=== PATIENT | male | born 1950 | race Caucasian/White ===

== ENCOUNTER 2023-01-24 10:57 | Inpatient (IN) | payer MEDICARE, OTHER ==
[~2023-01-24] VITALS: Ht 185.4 cm; Wt 68.0 kg
[2023-01-24] MEDS ORDERED: PIPERACILLIN/TAZOBACTAM 4.5 GM in SODIUM CHLORIDE 0.9% 100 ML IV STA (11:19)
[2023-01-24 11:28] LABS: BASOPHILS # (AUTO) 0.1 (0.0-0.1); BASOPHILS % 0.6 % (0.0-1.0); EOSINOPHILS # (AUTO) 0.1 (0.0-0.4); EOSINOPHILS % 0.8 % (0.0-6.0); HEMATOCRIT 45.2 % (38.2-49.6); LYMPHOCYTES # (AUTO) 1.6 (1.0-3.2); LYMPHOCYTES % 13.8 % (18.0-39.1); MEAN CORPUSCULAR HEMOGLOBIN 32.9 pg (28-32); MEAN CORPUSCULAR HGB CONC 33.2 g/dL (31-35); MEAN CORPUSCULAR VOLUME 99.1 fL (81-99); MONOCYTES # (AUTO) 1.2 (0.2-0.8); MONOCYTES % 10.9 % (4.4-11.3); NEUTROPHILS # (AUTO) 8.3 (2.1-6.9); NEUTROPHILS % 73.5 % (38.7-80.0); PLATELET COUNT 404 x10e3/uL (140-360); RED BLOOD COUNT 4.56 x10e6/uL (4.3-5.7)
[2023-01-24] MEDS ORDERED: ONDANSETRON HCL INJ 2MG/ML 2ML 2 MG/ML VIAL IV PRN (11:30)
[2023-01-24 11:46] LABS: INR 0.95; PROTHROMBIN TIME 12.9 seconds (11.9-14.5)
[2023-01-24] MEDS: SODIUM CHLORIDE 0.9% 1000ML 1,000 ML IV SCH ×2 (11:54→22:19)
[2023-01-24 11:55] LABS: ALANINE AMINOTRANSFERASE 14 IU/L (0-55); ALBUMIN 3.8 g/dL (3.5-5.0); ALBUMIN/GLOBULIN RATIO 0.9 (0.8-2.0); ALKALINE PHOSPHATASE 101 IU/L (40-150); ANION GAP 14.3 mmol/L (8-16); BLOOD UREA NITROGEN 11 mg/dL (7-26); BUN/CREATININE RATIO 14 (6-25); CALCIUM 9.6 mg/dL (8.4-10.2); CARBON DIOXIDE 24 mmol/L (22-29); CHLORIDE 101 mmol/L (98-107); CREATINE KINASE 178 IU/L (30-200); CREATININE, SERUM 0.78 mg/dL (0.72-1.25); GLUCOSE 118 mg/dL (74-118); POTASSIUM 4.3 mmol/L (3.5-5.1); SODIUM 135 mmol/L (136-145)
[2023-01-24] MEDS ORDERED: Vancomycin IV 1 GM in SODIUM CHLORIDE 0.9% 250ML 250 ML IV ONE (12:00)
[2023-01-24] MEDS ORDERED: SODIUM CHLORIDE 0.9% 100 ML ONE (12:10)
[2023-01-24 15:51] VITALS: BP 91/69
[2023-01-24 15:52] VITALS: BP 91/69
[2023-01-24 15:58] VITALS: BP 91/69
[2023-01-24 20:00] VITALS: BP 110/56
[2023-01-25] VITALS (9 sets, daily range): BP systolic 90–119; BP diastolic 42–65
[2023-01-25] MEDS: SODIUM CHLORIDE 0.9% 1000ML 1,000 ML IV SCH (05:29)
[2023-01-25 05:43] LABS: BASOPHILS # (AUTO) 0.1 (0.0-0.1); BASOPHILS % 0.9 % (0.0-1.0); EOSINOPHILS # (AUTO) 0.3 (0.0-0.4); EOSINOPHILS % 3.8 % (0.0-6.0); HEMATOCRIT 40.9 % (38.2-49.6); HEMOGLOBIN 13.1 g/dL (14.0-18.0); LYMPHOCYTES # (AUTO) 1.8 (1.0-3.2); LYMPHOCYTES % 20.3 % (18.0-39.1); MEAN CORPUSCULAR HEMOGLOBIN 32.6 pg (28-32); MEAN CORPUSCULAR VOLUME 101.7 fL (81-99); MONOCYTES # (AUTO) 1.1 (0.2-0.8); MONOCYTES % 12.9 % (4.4-11.3); NEUTROPHILS # (AUTO) 5.5 (2.1-6.9); NEUTROPHILS % 61.6 % (38.7-80.0); PLATELET COUNT 337 x10e3/uL (140-360); RED BLOOD COUNT 4.02 x10e6/uL (4.3-5.7)
[2023-01-25 06:09] LABS: ANION GAP 10.9 mmol/L (8-16); CALCIUM 8.4 mg/dL (8.4-10.2); CREATININE, SERUM 0.68 mg/dL (0.72-1.25); POTASSIUM 3.9 mmol/L (3.5-5.1)
[2023-01-25] MEDS ORDERED: ACETAMINOPHEN 325 MG TAB PO PRN (10:00)
[2023-01-25] MEDS ORDERED: ONDANSETRON HCL INJ 2MG/ML 2ML 2 MG/ML VIAL IV PRN (10:00)
[2023-01-25] MEDS ORDERED: NICOTINE 21 MG/EA PATCH TOP PRN (10:15)
[2023-01-25] MEDS: HYDROCODONE/APAP 5MG-325MG TAB PO PRN (20:20)
[2023-01-25] MEDS ORDERED: SODIUM CHLORIDE 0.9% 100 ML ONE (20:21)
[2023-01-25] MEDS ORDERED: IOPAMIDOL 370 MG/ML 100 ML INFUS..BTL INJ ONE (20:21)
[2023-01-26] VITALS (8 sets, daily range): BP systolic 94–124; BP diastolic 55–63
[2023-01-26] MEDS: ASPIRIN 81 MG ENTERIC COATED PO SCH (09:19)
[2023-01-26 11:12] LABS: CHOL/HDL RATIO 4.5 (3.9-4.7)
[2023-01-26] MEDS: HYDROCODONE/APAP 5MG-325MG TAB PO PRN (11:32)
[2023-01-26] MEDS: ATORVASTATIN 40 MG TAB PO SCH (20:04)
[2023-01-27] VITALS (21 sets, daily range): BP systolic 103–145; BP diastolic 57–80
[2023-01-27] MEDS ORDERED: SODIUM CHLORIDE 0.9% 1000ML 1,000 ML IV SCH ×3 (05:00→16:45)
[2023-01-27 05:10] LABS: BASOPHILS # (AUTO) 0.1 (0.0-0.1); BASOPHILS % 0.8 % (0.0-1.0); EOSINOPHILS # (AUTO) 0.3 (0.0-0.4); EOSINOPHILS % 2.5 % (0.0-6.0); HEMATOCRIT 41.4 % (38.2-49.6); HEMOGLOBIN 13.4 g/dL (14.0-18.0); LYMPHOCYTES % 19.3 % (18.0-39.1); MEAN CORPUSCULAR HEMOGLOBIN 32.8 pg (28-32); MEAN CORPUSCULAR HGB CONC 32.4 g/dL (31-35); MEAN CORPUSCULAR VOLUME 101.2 fL (81-99); MONOCYTES # (AUTO) 1.3 (0.2-0.8); MONOCYTES % 12.4 % (4.4-11.3); NEUTROPHILS # (AUTO) 6.7 (2.1-6.9); NEUTROPHILS % 64.8 % (38.7-80.0); PLATELET COUNT 343 x10e3/uL (140-360); RED BLOOD COUNT 4.09 x10e6/uL (4.3-5.7); RED CELL DISTRIBUTION WIDTH 12.8 % (11.7-14.4)
[2023-01-27 05:34] LABS: ALBUMIN/GLOBULIN RATIO 0.8 (0.8-2.0); CREATININE, SERUM 0.86 mg/dL (0.72-1.25)
[2023-01-27] MEDS: ASPIRIN 81 MG ENTERIC COATED PO SCH (09:00)
[2023-01-27] MEDS: COLLAGENASE 5 GM TUBE TOP SCH (10:58)
[2023-01-27] MEDS ORDERED: CLOPIDOGREL BISULFATE 75 MG TAB PO ONE (11:30)
[2023-01-27] MEDS ORDERED: HEPARIN SOD (PORCINE) 1000 UNIT/ML 30ML ONE (14:44)
[2023-01-27] MEDS ORDERED: NITROGLYCERIN/D5W 200 MCG/ML 250 ML ONE (14:45)
[2023-01-27] MEDS ORDERED: SODIUM CHLORIDE 0.9% 1000ML 1,000 ML ONE (14:45)
[2023-01-27] MEDS ORDERED: LIDOCAINE HCL 2% LOCAL 20 ML VIAL ONE (14:45)
[2023-01-27] MEDS ORDERED: IOPAMIDOL 370 MG/ML 100 ML INFUS..BTL INJ ONE (14:45)
[2023-01-27] MEDS ORDERED: HEPARIN SOD/SOD CHLORIDE 2,000 ML ONE (14:45)
[2023-01-27] MEDS ORDERED: FENTANYL CITRATE/PF 100MCG/2 ML INJ ONE (14:46)
[2023-01-27] MEDS ORDERED: MIDAZOLAM HCL 2 MG/2 ML VIAL ONE (14:46)
[2023-01-27] MEDS: ATORVASTATIN 40 MG TAB PO SCH (20:12)
[2023-01-27] MEDS: HYDROCODONE/APAP 5MG-325MG TAB PO PRN (20:13)
[2023-01-27] MEDS: SODIUM CHLORIDE 0.9% 1000ML 1,000 ML IV SCH (20:15)
[2023-01-28] VITALS: BP 102/53
[2023-01-28 05:53] LABS: BASOPHILS # (AUTO) 0.1 (0.0-0.1); BASOPHILS % 0.4 % (0.0-1.0); EOSINOPHILS # (AUTO) 0.1 (0.0-0.4); EOSINOPHILS % 1.1 % (0.0-6.0); HEMATOCRIT 41.3 % (38.2-49.6); HEMOGLOBIN 13.3 g/dL (14.0-18.0); LYMPHOCYTES # (AUTO) 1.5 (1.0-3.2); LYMPHOCYTES % 12.6 % (18.0-39.1); MEAN CORPUSCULAR HEMOGLOBIN 32.8 pg (28-32); MEAN CORPUSCULAR HGB CONC 32.2 g/dL (31-35); MONOCYTES # (AUTO) 1.3 (0.2-0.8); MONOCYTES % 11.2 % (4.4-11.3); NEUTROPHILS # (AUTO) 8.7 (2.1-6.9); NEUTROPHILS % 74.4 % (38.7-80.0); PLATELET COUNT 362 x10e3/uL (140-360); RED BLOOD COUNT 4.05 x10e6/uL (4.3-5.7); RED CELL DISTRIBUTION WIDTH 12.9 % (11.7-14.4)
[2023-01-28 06:12] LABS: ANION GAP 12.2 mmol/L (8-16); CALCIUM 8.7 mg/dL (8.4-10.2); CREATININE, SERUM 0.72 mg/dL (0.72-1.25); POTASSIUM 4.2 mmol/L (3.5-5.1)
[2023-01-28] MEDS: CLOPIDOGREL BISULFATE 75 MG TAB PO SCH (08:18)
[2023-01-28] MEDS: SODIUM CHLORIDE 0.9% 1000ML 1,000 ML IV SCH ×2 (08:18→21:41)
[2023-01-28] MEDS: ASPIRIN 81 MG ENTERIC COATED PO SCH (08:18)
[2023-01-28] MEDS: HYDROCODONE/APAP 5MG-325MG TAB PO PRN ×4 (08:20→21:54)
[2023-01-28] MEDS: COLLAGENASE 5 GM TUBE TOP SCH (09:12)
[2023-01-28 12:26] VITALS: BP 107/55
[2023-01-28 16:29] VITALS: BP 112/57
[2023-01-28 20:00] VITALS: BP 110/55
[2023-01-28] MEDS: ATORVASTATIN 40 MG TAB PO SCH (21:41)
[2023-01-29] MEDS: HYDROCODONE/APAP 5MG-325MG TAB PO PRN ×4 (02:23→22:26)
[2023-01-29 04:00] VITALS: BP 115/75
[2023-01-29 09:59] VITALS: BP 97/57
[2023-01-29] MEDS: ASPIRIN 81 MG ENTERIC COATED PO SCH (10:01)
[2023-01-29] MEDS: CLOPIDOGREL BISULFATE 75 MG TAB PO SCH (10:02)
[2023-01-29 12:06] VITALS: BP 102/49
[2023-01-29] MEDS: SODIUM CHLORIDE 0.9% 1000ML 1,000 ML IV SCH (16:07)
[2023-01-29 16:08] VITALS: BP 112/53
[2023-01-29] MEDS: COLLAGENASE 5 GM TUBE TOP SCH (16:14)
[2023-01-29] MEDS: Morphine 4mg INJECTION 4 MG/ML INJ IV PRN (16:35)
[2023-01-29 20:00] VITALS: BP 122/62
[2023-01-29] MEDS: ATORVASTATIN 40 MG TAB PO SCH (22:24)
[2023-01-30 04:00] VITALS: BP 110/61
[2023-01-30] MEDS: SODIUM CHLORIDE 0.9% 1000ML 1,000 ML IV SCH ×2 (04:12→20:55)
[2023-01-30 08:53] VITALS: BP 128/68
[2023-01-30] MEDS: CLOPIDOGREL BISULFATE 75 MG TAB PO SCH (08:57)
[2023-01-30] MEDS: ASPIRIN 81 MG ENTERIC COATED PO SCH (08:58)
[2023-01-30] MEDS: HYDROCODONE/APAP 5MG-325MG TAB PO PRN ×3 (09:06→22:24)
[2023-01-30 11:31] VITALS: BP 128/68
[2023-01-30 12:40] VITALS: BP 109/70
[2023-01-30 15:59] VITALS: BP 132/75
[2023-01-30] MEDS: Morphine 4mg INJECTION 4 MG/ML INJ IV PRN (16:55)
[2023-01-30] MEDS: COLLAGENASE 5 GM TUBE TOP SCH (17:41)
[2023-01-30 20:00] VITALS: BP 102/68
[2023-01-30] MEDS: ATORVASTATIN 40 MG TAB PO SCH (20:53)
[2023-01-31 00:41] VITALS: BP 112/56
[2023-01-31] MEDS: HYDROCODONE/APAP 5MG-325MG TAB PO PRN ×3 (03:05→13:00)
[2023-01-31 04:00] VITALS: BP 111/63
[2023-01-31 05:56] LABS: BASOPHILS # (AUTO) 0.1 (0.0-0.1); BASOPHILS % 0.7 % (0.0-1.0); EOSINOPHILS # (AUTO) 0.4 (0.0-0.4); EOSINOPHILS % 3.8 % (0.0-6.0); HEMATOCRIT 35.9 % (38.2-49.6); HEMOGLOBIN 11.6 g/dL (14.0-18.0); LYMPHOCYTES # (AUTO) 1.7 (1.0-3.2); LYMPHOCYTES % 17.3 % (18.0-39.1); MEAN CORPUSCULAR HEMOGLOBIN 32.7 pg (28-32); MEAN CORPUSCULAR HGB CONC 32.3 g/dL (31-35); MEAN CORPUSCULAR VOLUME 101.1 fL (81-99); MONOCYTES # (AUTO) 1.4 (0.2-0.8); MONOCYTES % 13.9 % (4.4-11.3); NEUTROPHILS # (AUTO) 6.2 (2.1-6.9); NEUTROPHILS % 64.1 % (38.7-80.0); PLATELET COUNT 334 x10e3/uL (140-360); RED BLOOD COUNT 3.55 x10e6/uL (4.3-5.7); RED CELL DISTRIBUTION WIDTH 12.7 % (11.7-14.4)
[2023-01-31 06:31] LABS: ANION GAP 11.8 mmol/L (8-16); CALCIUM 8.5 mg/dL (8.4-10.2); CREATININE, SERUM 0.62 mg/dL (0.72-1.25); POTASSIUM 3.8 mmol/L (3.5-5.1)
[2023-01-31] MEDS: CLOPIDOGREL BISULFATE 75 MG TAB PO SCH (08:15)
[2023-01-31] MEDS: ASPIRIN 81 MG ENTERIC COATED PO SCH (08:15)
[2023-01-31 08:21] VITALS: BP 111/63
[2023-01-31 08:26] VITALS: BP 138/69
[2023-01-31 12:06] VITALS: BP 130/68
[2023-01-31] MEDS ORDERED: ONDANSETRON HCL 4 MG ORAL DISINTEGRATING TAB PO PRN (12:30)
[2023-01-31] MEDS: COLLAGENASE 5 GM TUBE TOP SCH (13:01)
== END 2023-01-31 15:19 | disposition home or self-care (01) | DRG 253 ==
LOC: ER 11:20 → ERHOLD 11:22 → ER 11:22 → MED/SURG 15:32
PROVIDERS: ADMIT Internal Medicine; ATTEND Internal Medicine
PROC: 047M3Z1 Dilation of Right Popliteal Artery using Drug-Coated Balloon, Percutaneous Approach (ICD-10-PCS; principal; 2023-01-27)
PROC: 047K3Z1 Dilation of Right Femoral Artery using Drug-Coated Balloon, Percutaneous Approach (ICD-10-PCS; 2023-01-27)
PROC: B41D1ZZ Fluoroscopy of Aorta and Bilateral Lower Extremity Arteries using Low Osmolar Contrast (ICD-10-PCS; 2023-01-27)
PROC: 02HV33Z Insertion of Infusion Device into Superior Vena Cava, Percutaneous Approach (ICD-10-PCS; 2023-01-29)
DX: I70.263 Atherosclerosis of native arteries of extremities with gangrene, bilateral legs (principal); L97.816 Non-pressure chronic ulcer of other part of right lower leg with bone involvement without evidence of necrosis; L97.818 Non-pressure chronic ulcer of other part of right lower leg with other specified severity; L97.828 Non-pressure chronic ulcer of other part of left lower leg with other specified severity; I70.238 Atherosclerosis of native arteries of right leg with ulceration of other part of lower leg; I70.248 Atherosclerosis of native arteries of left leg with ulceration of other part of lower leg; F17.210 Nicotine dependence, cigarettes, uncomplicated; I87.2 Venous insufficiency (chronic) (peripheral); Z20.822 Contact with and (suspected) exposure to COVID-19; J44.9 Chronic obstructive pulmonary disease, unspecified; Z74.2 Need for assistance at home and no other household member able to render care; D64.9 Anemia, unspecified
CPT/HCPCS: 36247; 36415; 36569; 37224; 71045; 75625; 75635; 75716; 80048; 80053; 80061; 82550; 82553; 83605; 84484; 85025; 85610; 85730; 87040; 87071; 87205; 93880; 93925; 94799; 96361; 99152; 99153; 99252; 99284; C1725; C1766; C1769; C1887; C1894; C2623; J0696; J1644; J2001; J2250; J2270; J2405; J2543; J3010; J3370; J7030; J7050; Q9967